=== PATIENT | male | born 1955 ===

== ENCOUNTER 2023-11-29 06:36 | Observation (INO) ==
[~2023-11-29 06:36] MED LIST: Metoclopramide 5 MG/ML VIAL (10 mg) IV PRN; NS 0.45% 1000 ml BAG 1,000 ML IV SCH; Naloxone 0.4 mg VIAL 0.4 mg/ml 1 ml VIAL IV PRN; Ondansetron 4 mg VIAL 2 MG/ML 2 ml VIAL IV PRN; fentaNYL 100 mcg/2 ml 50 MCG/ML VIAL IV PRN
[2023-11-29] MEDS ORDERED: Propofol 10 MG/ML 20 ML BTL ONE (07:01)
[2023-11-29] MEDS ORDERED: Phenylephrine IV 10 MG/ML 1 ml VIAL ONE (07:01)
[2023-11-29] MEDS ORDERED: Lidocaine 2% PF 5 ML VIAL ONE (07:01)
[2023-11-29] MEDS ORDERED: fentaNYL 100 mcg/2 ml 50 MCG/ML VIAL ONE (07:02)
[2023-11-29] MEDS ORDERED: Rocuronium 50 mg VIAL 10 mg/ml 5 ml VIAL (50 mg) ONE (07:02)
[2023-11-29 07:23] LABS: Rapid COVID-19 Molecular Undetected (Undetected)
[2023-11-29] MEDS ORDERED: Sevoflurane BOTTLE ONE (07:28)
[2023-11-29] MEDS ORDERED: Tranexamic Acid 1 GM/100ML BAG 2,000 MG/200 ML BAG IV ONE (07:29)
[2023-11-29] MEDS ORDERED: ceFAZolin 2 GM PREMIX 2 GM/50 ML BAG ONE (07:29)
[2023-11-29] MEDS ORDERED: ROPIVACAINE 5 MG/ML 30 ML BTL (0.5%) ONE (07:37)
[2023-11-29] MEDS ORDERED: Midazolam 2 mg/2 ml VIAL 1 mg/ml 2 ml VIAL (2 mg) ONE (08:09)
[2023-11-29] MEDS ORDERED: Dexamethasone IV 4 MG/ML VIAL 1 ml VIAL ONE (09:27)
[2023-11-29] MEDS ORDERED: Ondansetron 4 mg VIAL 2 MG/ML 2 ml VIAL ONE (09:27)
[2023-11-29] MEDS ORDERED: Glycopyrrolate IV 0.2 MG/ML 1 ML VIAL ONE (09:41)
[2023-11-29] MEDS ORDERED: Ondansetron 4 mg VIAL 2 MG/ML 2 ml VIAL IV PRN (11:39)
[2023-11-29] MEDS ORDERED: Magnesium Hydroxide LIQ 30 ML UDC PO PRN (11:39)
[2023-11-29] MEDS ORDERED: Lactulose 30 ml UDC PO PRN (11:39)
[2023-11-29] MEDS ORDERED: Morphine 2 MG/ML SYRINGE IV PRN (11:39)
[2023-11-29] MEDS ORDERED: Ondansetron ODT 4 mg TAB 4 MG TAB PO PRN (11:39)
[2023-11-29] MEDS ORDERED: Calcium Carb (TUMS) 500 mg CHEW TAB PO PRN (11:39)
[2023-11-29] MEDS: Buffered Lidocaine 1% SYRIN 1 ml INTRADERM ONE (13:21)
[2023-11-29] MEDS: Acetaminophen IV 1 GM/100ML 1,000 MG/100 ML BAG IV ONE (13:21)
[2023-11-29] MEDS: Scopolamine 1 mg/72hr PATCH TRANSDERM ONE (13:22)
[2023-11-29] MEDS: Lactated Ringers 1000 ml BAG 1,000 ML IV SCH ×2 (13:23→14:25)
[2023-11-29] MEDS: ceFAZolin 2 GM PREMIX 2 GM/50 ML BAG IV SCH (17:27)
[2023-11-29] MEDS ORDERED: ceFAZolin 2 GM in NS PREMIX 2 GM/100 ML BAG IVPB SCH (17:30)
[2023-11-29] MEDS: Cholecalciferol (VIT D3) 400 units TAB PO SCH (21:03)
[2023-11-29] MEDS: Magnesium Hydroxide LIQ 30 ML UDC PO SCH (21:03)
[2023-11-29] MEDS: Calcium Carb (TUMS) 500 mg CHEW TAB PO SCH (21:04)
[2023-11-30 05:33] LABS: Hematocrit 32.6 % (38-53); Hemoglobin 11.4 g/dL (13.2-16.3); Mean Platelet Volume 6.8 fL (7.5-11.2); Platelet Count 214 10^3/uL (150-450)
[2023-11-30 06:12] LABS: Calcium 8.2 mg/dL (8.6-10.3); Creatinine, Serum 1.52 mg/dL (0.67-1.17); Potassium 4.3 mmol/L (3.5-5.0); eGFR CKD-EPI 49.3 (>60)
[2023-11-30] MEDS: Vitamin THERAPEUTIC TAB PO SCH (09:38)
[2023-11-30] MEDS: Pravastatin 20 mg TAB (NF) PO SCH (09:39)
[2023-11-30 09:53] VITALS: BP 107/75
== END 2023-11-30 11:30 | disposition home or self-care (01) ==
LOC: AA 06:36 → INTOOBSV 06:36 → SSU 11:39
PROVIDERS: ADMIT Orthopaedic Surgery Adult Reconstructive Orthopaedic Surgery; ATTEND Orthopaedic Surgery Adult Reconstructive Orthopaedic Surgery